=== PATIENT | male | born 1935 | race Caucasian/White ===

== ENCOUNTER → 2016-09-18 | Outpatient (CLI) | payer MEDICARE, OTHER ==
[~2016-09-18] MED LIST: ACETAMINOPHEN PO; ACETAMINOPHEN325 MG PO; ALBUTEROL INH; ALBUTEROL NEB; ALBUTEROL17 GM; AMITIZA; AMITIZA PO; ASPIRIN PO; ASPIRIN81 M2 PO; ASPIRINEC PO; ATARAX PO; ATORVASTATIN CA10 MG PO; ATROVENT NEB; AUGMENTIN PO; BACID; CALCIUM CIT PO; CARDURA; CARDURA2 MG PO; CETAPHIL CLEAN TOP; CITRACAL + D CA1 TA1 PO; CITRACAL200 MG PO; CORRECTOL5 MG; DEBROX OTIC DRO15 ML AU; DEBROX OTIC DRO15 ML OT; DIASTAT ACUDIAL1 KIT PR; DIAZEPAM1 EAC1 RC; DILANTIN; DILANTIN PO; DULCOLAX5 MG PO; ERYTHROMYCIN; FLOMAX0.4 M1; FLUNISOLIDE25 ML; FOSAMAX70 MG; GENTLE LAXATIVE10 MG RC; GUAIFENESIN PO; IBUPROFEN PO; IMDUR PO; IPRATROPIUM0.2 MG/ML NEB; KCL; KCL PO; KEPPRA750 M1 PO; KEPPRA750 MG PO; KLOR-CON PO; LACTULOSE10 G/15 ML PO; LEVAQUIN; LOPRESSOR; LOPRESSOR PO; MEVACOR; MEVACOR PO; MIACALCIN4 ML; MILK OF MAGNESIA PO; MOM PO; NASALIDE25 ML; NEXIUM PO; NEXIUM20 MG PO; NITRO-DUR1 PATCH .1 TD; NITROFURANTOIN100 M3; NITROGYLCERIN SUBLINGUAL; NORVASC; OMEGA 3 FISH OI1 CAP PO; POLYOX WSR-3011 GM PO; PRILOSEC; PRILOSEC PO; PRIMACORT TOP; PROBIOTIC1 EACH PO; PROSCAR5 MG; PROSCAR5 MG PO; ROCEPHIN IV; SELSUN BLUE NA325 ML TP; SENNA CONCENTR8.6 MG PO; SENNA8.6 M2 PO; SINEMET CR 25-1 EACH PO; SINGULAIR; SINGULAIR PO; SMOG ENEMA; SMOG ENEMA PR; SOD BICARBONATE PO; TAMIFLU75 MG PO; TOPAMAX; TRICOR145 MG PO; VITAMIN D1000 UNIT PO; [UNRECOGNIZED DRUG - OTHER] PO
== END | disposition home or self-care (01) ==
LOC: CSSDAY 09:48
DX: M81.0 Age-related osteoporosis without current pathological fracture (principal)
CPT/HCPCS: 96372; J0897